=== PATIENT | female | born 1955 | race Caucasian/White ===

== ENCOUNTER 2017-07-17 21:18 | Emergency (ER) | payer SELFPAY ==
[~2017-07-17] VITALS: Ht 165.1 cm; Wt 95.2 kg
[~2017-07-17 21:18] MED LIST: AMO500 PO; APAP/HYDROCODON1 T13 PO; BIA500 PO; COL100 PO; FERROUS GLUCON240 MG PO; MOTRIN800 MG PO; OMEPRAZOLE DR20 M1 PO; VITAMIN C100 M1 PO
[2017-07-17 21:32] VITALS: Ht 165.1 cm; Wt 95.2 kg
[2017-07-17 22:47] LABS: BASOPHIL % 0.2 % (0-2); PLATELET COUNT 310 x10^3mcL (130-400)
[2017-07-17 22:48] LABS: RED CELL DISTRIBUTION WIDTH 19.9 % (11.5-14.5)
[2017-07-17 22:59] LABS: CALCIUM 8.4 mg/dL (8.5-10.1); CARBON DIOXIDE 24.8 mmol/L (21-32); CHLORIDE SERUM 104 mmol/L (98-107); CREATININE SERUM 0.6 mg/dL (0.6-1.0); GFR1 > 60 mL/min; GLUCOSE SERUM 114 mg/dL (74-106); POTASSIUM SERUM 4.6 mmol/L (3.5-5.1); SODIUM SERUM 137 mmol/L (136-145)
[2017-07-17 23:04] LABS: ALBUMIN 3.2 g/dL (3.4-5.0); ALKALINE PHOSPHATASE 110 U/L (46-116); ALT/SGPT 18 U/L (14-59); AST/SGOT 19 U/L (15-37); BILIRUBIN TOTAL 0.3 mg/dL (0.20-1.00); TOTAL PROTEIN, SERUM 7.6 g/dL (6.4-8.2)
[2017-07-18 03:10] VITALS: BP 163/96
== END 2017-07-18 03:10 | disposition short-term general hospital (02) ==
LOC: ED 21:18
PROVIDERS: Emergency Medicine
DX: S72.402A Unspecified fracture of lower end of left femur, initial encounter for closed fracture (principal); X58.XXXA Exposure to other specified factors, initial encounter; Y93.89 Activity, other specified; Y92.89 Other specified places as the place of occurrence of the external cause; Y99.8 Other external cause status
CPT/HCPCS: 27510; J1885; J2270; J3010; J3490

== ENCOUNTER → 2018-11-30 | Outpatient (CLI) | payer SELFPAY | END | disposition home or self-care (01) | LOC: MA 08:40 | PROC: BH02ZZZ Plain Radiography of Bilateral Breasts (ICD-10-PCS; principal; 2018-11-30) | DX: Z12.39 Encounter for other screening for malignant neoplasm of breast (principal); Z12.31 Encounter for screening mammogram for malignant neoplasm of breast | CPT/HCPCS: 77067 ==